=== PATIENT | male | born 1970 | race Caucasian/White ===

== ENCOUNTER 2018-09-16 21:07 | Inpatient (IN) | payer BC ==
[~2018-09-16] VITALS: Ht 170.2 cm; Wt 196.5 kg
--- OUTSIDE RECORDS SUMMARY | 2018-09-16 21:11 | XMS REPORT | CCD ---
Author Author Auto Generated Organization [facility] Address Unknown Phone Unavailable Care Team Providers Care Account Development Associate Name Role Phone Lorri Simeon RP Unavailable DmdamasomariluAlmaRebeca A CP Allergies, Adverse Reactions, Alerts Substance Reaction Status NKDA Active Problem List Condition Effective Dates Status Pain 07/19/2012 Active Pain Active Medications Medication Instructions Start Date End Date Status Adacel 0.5 ml, Route: IM, Drug Form: INJ, 07/18/2012 07/18/2012 Completed kg, ONCE, Start date: 07/18/12 22:01:00, Stop date: 07/18/12 22:01:00 Toradol 30 mg/mL 30 mg, 1 mL, Route: IV, Drug form: 07/20/2012 07/22/2012 Completed injectable solution INJ, Q6H, Dosing Weight 172.727, kg, Start date: 07/20/12 12:00:00, Duration: 4 day, Stop date: 07/22/12 12:00:00 Lovenox 40 mg, 0.4 mL, Route: SUB-Q, Drug 07/19/2012 07/24/2012 Discontinued form: INJ, Q12H, kg, Priority: NOW, Start date: 07/19/12 16:19:00, Stop date: 08/18/12 16:00:00 aspirin 325 mg 325 mg, 1 tab, Route: PO, Drug 07/20/2012 07/24/2012 Discontinued tablet form: TAB, Daily, kg, Start date: 07/20/12 9:00:00, Duration: 30 day, Stop date: 08/18/12 9:00:00 venlafaxine 75 mg, 1 cap, Route: PO, Drug form: 07/21/2012 07/24/2012 Discontinued ERCAP, Daily, kg, Start date: 07/21/12 9:00:00, Duration: 30 day, Stop date: 08/19/12 9:00:00 Sodium Chloride 0.9% 1,000 mL, Rate: 125 ml/hr, Infuse 07/19/2012 07/21/2012 Discontinued IV 1,000 mL over: 8 hr, Route: IV, Total Volume: 1,000, Start date: 07/19/12 9:38:00, Duration: 30 day, Stop date: 08/18/12 9:37:00 MiraLax 17 gm, 1 pkt, Route: PO, Drug form: 07/20/2012 07/24/2012 Discontinued PWDR, BID, kg, Start date: 07/20/12 17:00:00, Duration: 30 day, Stop date: 08/19/12 9:00:00 Colace 100 mg oral 100 mg, 1 cap, Route: PO, Drug 07/20/2012 07/24/2012 Discontinued capsule form: CAP, BID, kg, Start date: 07/20/12 17:00:00, Duration: 30 day, Stop date: 08/19/12 9:00:00 Celebrex 200 mg, 2 cap, Route: PO, Drug 07/20/2012 07/20/2012 Canceled form: CAP, Q12H, kg, Start date: 07/20/12 21:00:00, Duration: 30 day, Stop date: 08/19/12 9:00:00 Ratcliff 10/325 oral 1 tab, Route: PO, Drug Form: TAB, 07/20/2012 07/24/2012 Discontinued tablet kg, Q4H, PRN Pain, Start date: 07/20/12 10:02:00, Duration: 30 day, Stop date: 08/19/12 10:01:00 famotidine 20 mg, 2 mL, Route: IVP, Drug form: 07/20/2012 07/24/2012 Discontinued INJ, Daily, kg, Start date: 07/20/12 9:00:00, Duration: 30 day, Stop date: 08/18/12 9:00:00 [place]cliff 10/325 oral 1 tab, Route: PO, Drug Form: TAB, 07/20/2012 07/24/2012 Discontinued tablet kg, Q4H, Start date: 07/20/12 12:00:00, Stop date: 08/19/12 8:00:00 Sodium Chloride 0.9% 125 mL, Rate: 125 ml/hr, Infuse 07/19/2012 07/19/2012 Completed (Bolus) IV 125 mL over: 1 hr, Route: IV, Dosing Weight 188 kg, Total Volume: 125, Bolus Dose, Priority: STAT, Start date: 07/19/12 8:20:00, Duration: 1 doses or times, Stop date: 07/19/12 9:19:00 Colace 100 mg oral 100 mg, 1 cap, PO, BID, PRN, 20 07/24/2012 Ordered capsule cap, Constipation, Substitution Allowed, CAP Ratcliff 10/325 oral 1 tab, PO, Q4H, PRN, 24 tab, for 07/24/2012 Ordered tablet pain, Substitution Allowed, Maintenance potassium chloride 40 mEq, 2 tab, Route: PO, Drug 07/20/2012 07/20/2012 Completed form: ERTAB, ONCE, kg, Start date: 07/20/12 10:07:00, Stop date: 07/20/12 10:07:00 Augmentin 875 mg 1 tab, Route: PO, Drug Form: TAB, 07/20/2012 07/20/2012 Discontinued oral tablet kg, [id number], Start date: 07/20/12 9:00:00, Stop date: 07/28/12 9:00:00 morphine Sulfate 2 mg, 1 mL, Route: IVP, Drug form: 07/20/2012 07/20/2012 Completed INJ, ONCE, kg, Start date: 07/20/12 0:48:00, Stop date: 07/20/12 0:48:00 Sodium Chloride 0.9% 1,000 mL, Rate: 1,000 ml/hr, Infuse 07/19/2012 07/19/2012 Discontinued (Bolus) IV 1000 mL over: 1 hr, Route: IV, kg, Total Volume: 1,000, Bolus Dose, Priority: STAT, Start date: 07/19/12 8:19:00, Duration: 1 doses or times, Stop date: 07/19/12 9:18:00 Omnipaque 350mg/ml 85 mL, Route: IVP, Drug Form: SOLN, 07/19/2012 07/22/2012 Discontinued kg, ONCALL, STAT, Start date: 07/19/12 4:41:00, Duration: 1 doses or times, Dose=2.2ml/kg, Max [id number] Dose=2.2ml/kg, Max owql=[id number] Dilaudid 1 mg, 0.5 mL, Route: IV, Drug form: 07/19/2012 07/19/2012 Completed INJ, ONCE, kg, Start date: 07/19/12 8:19:00, Stop date: 07/19/12 8:19:00 NS 1,000 mL 1,000 mL, Rate: 1,000 ml/hr, Infuse 07/19/2012 07/19/2012 Completed over: 1 hr, Route: IV, Dosing Weight 188.636 kg, Total Volume: 1,000, Start date: 07/19/12 2:58:00, Duration: 1 doses or times, Stop date: 07/19/12 3:57:00, Bolus Dose Bolus Dose morphine Sulfate 2 mg, 1 mL, Route: IVP, Drug form: 07/19/2012 07/24/2012 Discontinued INJ, Q2H, kg, PRN Pain Score 7-10, Start date: 07/19/12 8:24:00, Duration: 30 day, Stop date: 08/18/12 8:23:00 docusate 100 mg, 1 cap, Route: PO, Drug 07/19/2012 07/23/2012 Discontinued form: CAP, BID, kg, PRN Constipation, Start date: 07/19/12 8:24:00, Duration: 30 day, Stop date: 08/18/12 8:23:00 Immunizations Vaccine Date Status diphtheria/pertussis, acel/tetanus adult1 07/18/2012 Auth (Verified) 1Result Comment: other RN threw bottle away Vital Signs Most recent to oldest [Reference Range]: 1 2 3 Height 180.34 cm (07/19/2012 14:26:00) 180.34 cm (07/19/2012 02:35:00) Temperature Oral [96.4-99.1 DegF] 98.4 DegF (07/24/2012 17:56:00) 98.2 DegF (07/24/2012 07:28:00) 98.6 DegF (07/24/2012 04:00:00) Systolic Blood Pressure [90-140 mmHg] 157 mmHg *HI* (07/24/2012 17:56:00) 134 mmHg (07/24/2012 07:28:00) 137 mmHg (07/24/2012 04:00:00) Diastolic Blood Pressure [60-90 mmHg] 84 mmHg (07/24/2012 17:56:00) 67 mmHg (07/24/2012 07:28:00) 82 mmHg (07/24/2012 04:00:00) Respiratory Rate [14-20 BRMIN] 20 BRMIN (07/24/2012 17:56:00) 20 BRMIN (07/24/2012 07:28:00) 20 BRMIN (07/24/2012 04:00:00) Peripheral Pulse Rate [60-100 bpm] 62 bpm (07/24/2012 17:56:00) 91 bpm (07/24/2012 07:28:00) 101 bpm *HI* (07/24/2012 04:00:00) Weight 172.727 kg (07/19/2012 14:26:00) 188.636 kg (07/19/2012 02:35:00) Results BEDSIDE GLUCOSE TESTING Most recent to oldest [Reference Range]: 1 2 3 Gluc POC Lif[place]n [70-99 mg/dL] 114 mg/dL 1 *HI* (07/20/2012 03:48:00) 113 mg/dL 2 *HI* (07/19/2012 23:29:00) 113 mg/dL 3 *HI* (07/19/2012 20:30:00) Comment1 Notify RN/MD *NA* (07/19/2012 14:15:00) 1Interpretive Data: Upper Reportable Limit: 200 mg/dL. 2Interpretive Data: Upper Reportable Limit: 200 mg/dL. 3Interpretive Data: Upper Reportable Limit: 200 mg/dL. URINALYSIS Most recent to oldest [Reference Range]: 1 2 3 UA Turbidity [Clear] Clear (07/19/2012 14:44:00) UA Color [Yellow] Yellow *NA* (07/19/2012 14:44:00) UA pH [5.0-8.0] 5.5 (07/19/2012 14:44:00) UA Spec Grav [<=1.030] 1.029 (07/19/2012 14:44:00) UA Glucose [Negative mg/dL] Negative mg/dL *NA* (07/19/2012 14:44:00) UA Blood [Negative] Moderate *ABN* (07/19/2012 14:44:00) UA Ketones [Negative mg/dL] Negative mg/dL *NA* (07/19/2012 14:44:00) UA Protein [Negative mg/dL] 20 mg/dL *ABN* (07/19/2012 14:44:00) UA Urobilinogen [0.1-1.0 mg/dL] <=1.0 mg/dL *NA* (07/19/2012 14:44:00) UA Bili [Negative] Negative *NA* (07/19/2012 14:44:00) UA Leuk Est [Negative] Negative (07/19/2012 14:44:00) UA Nitrite [Negative] Negative (07/19/2012 14:44:00) UA WBC [0-5 /HPF] 2 /HPF *NA* (07/19/2012 14:44:00) UA RBC [0-2 /HPF] 45 /HPF *NA* (07/19/2012 14:44:00) UA Bacteria [None Seen /HPF] Occasional /HPF *NA* (07/19/2012 14:44:00) UA Sq Epi [Few /LPF] Occasional /LPF *NA* (07/19/2012 14:44:00) UA Mucus [None Seen /LPF] Few /LPF *NA* (07/19/2012 14:44:00) CHEMISTRY Most recent to oldest [Reference Range]: 1 2 3 Sodium Lvl [135-145 mEq/L] 142 mEq/L (07/22/2012 04:30:00) 144 mEq/L (07/20/2012 01:52:00) 142 mEq/L (07/19/2012 18:50:00) Potassium Lvl [3.5-5.1 mEq/L] 4.0 mEq/L (07/22/2012 04:30:00) 3.7 mEq/L (07/20/2012 01:52:00) 3.6 mEq/L (07/19/2012 18:50:00) Chloride Lvl [95-109 mEq/L] 106 mEq/L (07/22/2012 04:30:00) 108 mEq/L (07/20/2012 01:52:00) 106 mEq/L (07/19/2012 18:50:00) CO2 [24-32 mEq/L] 26 mEq/L (07/22/2012 04:30:00) 27 mEq/L (07/20/2012 01:52:00) 26 mEq/L (07/19/2012 18:50:00) AGAP [10.0-20.0 mEq/L] 14.0 mEq/L (07/22/2012 04:30:00) 12.7 mEq/L (07/20/2012 01:52:00) 13.6 mEq/L (07/19/2012 18:50:00) Creatinine Lvl [0.5-1.4 mg/dL] 0.7 mg/dL (07/22/2012 04:30:00) 0.9 mg/dL (07/20/2012:52:00) 0.9 mg/dL (07/19/2012 18:50:00) BUN [7-22 mg/dL] 11 mg/dL (07/22/2012 04:30:00) 10 mg/dL (07/20/2012 01:52:00) 9 mg/dL (07/19/2012 18:50:00) Glucose Lvl [70-99 mg/dL] 106 mg/dL 4 *HI* (07/22/2012 04:30:00) 121 mg/dL 5 *HI* (07/20/2012 01:52:00) 115 mg/dL 6 *HI* (07/19/2012 18:50:00) Calcium Lvl [8.5-10.5 mg/dL] 8.1 mg/dL *LOW* (07/22/2012 04:30:00) 7.9 mg/dL *LOW* (07/20/2012 01:52:00) 8.2 mg/dL *LOW* (07/19/2012 18:50:00) Phosphorus [2.5-4.5 mg/dL] 3.2 mg/dL (07/22/2012 04:30:00) 2.3 mg/dL *LOW* (07/19/2012 18:50:00) Magnesium Lvl [1.8-2.4 mg/dL] 2.1 mg/dL (07/22/2012 04:30:00) 2.0 mg/dL (07/19/2012 18:50:00) pH [place] [7.28-7.42] 7.33 (07/19/2012 05:45:00) pCO2 [place] [38-52 mmHg] 50 mmHg (07/19/2012 05:45:00) pO2 [place] [20-49 mmHg] 33 mmHg (07/19/2012 05:45:00) HCO3 [place] [22.0-26.0 mMol/L] 26.4 mMol/L *HI* (07/19/2012 05:45:00) BE [place] [-2-2 mMol/L] 0 mMol/L (07/19/2012 05:45:00) O2 Sat [place] [40.0-70.0 %] 58.0 % (07/19/2012 05:45:00) Temp [place] 37.0 DegC *NA* (07/19/2012 05:45:00) 4Interpretive Data: Adult reference range values reflect the clinical guidelines of the [place] [employer]. 5Interpretive Data: Adult reference range values reflect the clinical guidelines of the [place] [employer]. 6Interpretive Data: Adult reference range values reflect the clinical guidelines of the [place] [employer]. HEMATOLOGY Most recent to oldest [Reference Range]: 1 2 3 WBC [3.7-10.4 K/CMM] 6.0 K/CMM (07/22/2012 04:30:00) 10.4 K/CMM (07/20/2012 01:52:00) 10.5 K/CMM *HI* (07/19/2012 18:50:00) RBC [4.70-6.10 M/CMM] 4.36 M/CMM *LOW* (07/22/2012 04:30:00) 4.31 M/CMM *LOW* (07/20/2012 01:52:00) 4.25 M/CMM *LOW* (07/19/2012 18:50:00) Hgb [14.0-18.0 g/dL] 13.3 g/dL *LOW* (07/22/2012 04:30:00) 12.9 g/dL *LOW* (07/20/2012 01:52:00) 12.8 g/dL *LOW* (07/19/2012 18:50:00) Hct [42.0-54.0 %] 39.2 % *LOW* (07/22/2012 04:30:00) 38.8 % *LOW* (07/20/2012 01:52:00) 38.1 % *LOW* (07/19/2012 18:50:00) MCV [80.0-94.0 fL] 90.0 fL (07/22/2012 04:30:00) 90.1 fL (07/20/2012 01:52:00) 89.6 fL (07/19/2012 18:50:00) MCH [27.0-31.0 pg] 30.5 pg (07/22/2012 04:30:00) 29.9 pg (07/20/2012 01:52:00) 30.2 pg (07/19/2012 18:50:00) MCHC [32.0-36.0 g/dL] 33.9 g/dL (07/22/2012 04:30:00) 33.2 g/dL (07/20/2012 01:52:00) 33.7 g/dL (07/19/2012 18:50:00) RDW [11.5-14.5 %] 15.3 % *HI* (07/22/2012 04:30:00) 15.6 % *HI* (07/20/2012 01:52:00) 15.1 % *HI* (07/19/2012 18:50:00) Platelet [133-450 K/CMM] 214 K/CMM (07/22/2012 04:30:00) 203 K/CMM (07/20/2012 01:52:00) 194 K/CMM (07/19/2012 18:50:00) MPV [7.4-10.4 fL] 8.4 fL (07/22/2012 04:30:00) 8.7 fL (07/20/2012 01:52:00) 8.9 fL (07/19/2012 18:50:00) Segs [45.0-75.0 %] 76.0 % *HI* (07/22/2012 04:30:00) 82.5 % *HI* (07/20/2012 01:52:00) 83.4 % *HI* (07/19/2012 18:50:00) Lymphocytes [20.0-40.0 %] 13.3 % *LOW* (07/22/2012 04:30:00) 9.5 % *LOW* (07/20/2012 01:52:00) 9.3 % *LOW* (07/19/2012 18:50:00) Monocytes [2.0-12.0 %] 7.8 % (07/22/2012 04:30:00) 7.6 % (07/20/2012 01:52:00) 7.1 % (07/19/2012 18:50:00) Eosinophils [0.0-4.0 %] 2.6 % (07/22/2012 04:30:00) 0.3 % (07/20/2012 01:52:00) 0.1 % (07/19/2012 18:50:00) Basophils [0.0-1.0 %] 0.3 % (07/22/2012 04:30:00) 0.1 % (07/20/2012 01:52:00) 0.1 % (07/19/2012 18:50:00) Segs-Bands # [1.5-8.1 K/CMM] 4.5 K/CMM (07/22/2012 04:30:00) 8.6 K/CMM *HI* (07/20/2012 01:52:00) 8.8 K/CMM *HI* (07/19/2012 18:50:00) Lymphocytes # [1.0-5.5 K/CMM] 0.8 K/CMM *LOW* (07/22/2012 04:30:00) 1.0 K/CMM (07/20/2012 01:52:00) 1.0 K/CMM (07/19/2012 18:50:00) Monocytes # [0.0-0.8 K/CMM] 0.5 K/CMM (07/22/2012 04:30:00) 0.8 K/CMM (07/20/2012 01:52:00) 0.8 K/CMM (07/19/2012 18:50:00) Eosinophils # [0.0-0.5 K/CMM] 0.2 K/CMM (07/22/2012 04:30:00) 0.0 K/CMM (07/20/2012 01:52:00) 0.0 K/CMM (07/19/2012 18:50:00) Basophils # [0.0-0.2 K/CMM] 0.0 K/CMM (07/22/2012 04:30:00) 0.0 K/CMM (07/20/2012 01:52:00) 0.0 K/CMM (07/19/2012 18:50:00) Rapid TEG Sample Type Citrated Whole Blood *NA* (07/19/2012 05:45:00) ACT (TEG) [86-118 seconds] 97 seconds (07/19/2012 05:45:00) Split Point 0.4 minutes *NA* (07/19/2012 05:45:00) R-time [0.4-0.7 minutes] 0.5 minutes (07/19/2012 05:45:00) K-time [0.6-2.3 minutes] 1.2 minutes (07/19/2012 05:45:00) Angle [64-80 degrees] 76 degrees (07/19/2012 05:45:00) Max Amp [52-71 mm] 66 mm (07/19/2012 05:45:00) G-value [5.0-11.6 K d/sc] 9.7 K d/sc (07/19/2012 05:45:00) Estimated % Lysis [0.0-7.5 %] 1.4 % (07/19/2012 05:45:00) IMMUNOLOGY Most recent to oldest [Reference Range]: 1 2 3 CDC-HIV 1/2 Ab [Negative] Negative *NA* (07/19/2012 00:51:00)
--- OUTSIDE RECORDS SUMMARY | 2018-09-16 21:11 | XMS REPORT | CCD ---
Author Author Auto Generated Organization [facility] Address Unknown Phone Unavailable Care Team Providers Care Drug Abuse Resistance Education Officer Name Role Phone Lorri Simeon CP Unavailable Allergies, Adverse Reactions, Alerts Substance Reaction Status NKDA Active Problem List Condition Effective Dates Status Pain 07/19/2012 Active Pain Active Medications Medication Instructions Start Date End Date Status Adacel 0.5 ml, Route: IM, Drug Form: INJ, 07/18/2012 07/18/2012 Completed kg, ONCE, Start date: 07/18/12 22:01:00, Stop date: 07/18/12 22:01:00 Zofran 4 mg, Route: IVP, Drug form: INJ, 07/18/2012 07/18/2012 Completed ONCE, kg, Priority: STAT, Start date: 07/18/12 22:01:00, Stop date: 07/18/12 22:01:00 morphine Sulfate 4 mg, Route: IVP, ONCE, kg, Start 07/18/2012 07/18/2012 Completed date: 07/18/12 22:01:00, Stop date: 07/18/12 22:01:00 LR IV 1000 mL 1,000 mL, Rate: 1,000 ml/hr, Infuse 07/18/2012 07/19/2012 Discontinued over: 1 hr, Route: IV, Total Volume: 1,000, Start date: 07/18/12 22:01:00, Duration: 30 day, Stop date: 08/17/12 22:00:00 Dilaudid 1 mg, Route: IV, ONCE, Dosing 07/19/2012 07/19/2012 Completed Weight 193.182, kg, Start date: 07/19/12 0:42:00, Stop date: 07/19/12 0:42:00 Saline Flush 0.9% 5 ml, Route: IVP, kg, PRN, PRN Line 07/18/2012 07/19/2012 Discontinued Flush, Start date: 07/18/12 21:57:00, Duration: 30 day, Stop date: 08/17/12 21:56:00 Lactated Ringers 1,000 mL, Rate: 1,000 ml/hr, Infuse 07/18/2012 07/18/2012 Completed (Bolus) IV 1,000 mL over: 1 hr, Route: IV, Total Volume: 1,000, Bolus Dose, Priority: STAT, Start date: 07/18/12 21:57:00, Duration: 1 doses or times, Stop date: 07/18/12 22:56:00 Effexor Substitution Allowed 07/19/2012 Ordered morphine Sulfate 4 mg, Route: IVP, ONCE, Dosing 07/18/2012 07/18/2012 Completed Weight 193.182, kg, Priority: STAT, Start date: 07/18/12 22:54:00, Stop date: 07/18/12 22:54:00 Dilaudid 1 mg, Route: IV, ONCE, Dosing 07/18/2012 07/18/2012 Completed Weight 193.182, kg, Start date: 07/18/12 23:35:00, Stop date: 07/18/12 23:35:00 Immunizations Vaccine Date Status diphtheria/pertussis, acel/tetanus adult1 07/18/2012 Auth (Verified) 1Result Comment: other RN threw bottle away Vital Signs Most recent to oldest [Reference Range]: 1 Height 180.34 cm (07/18/2012 21:55:00) Weight 193.182 kg (07/18/2012 21:55:00) Results URINALYSIS Most recent to oldest [Reference Range]: 1 UA Turbidity [Clear] Clear (07/19/2012 00:25:00) UA Color [Yellow] Yellow *NA* (07/19/2012 00:25:00) UA pH [5.0-8.0] 5.0 (07/19/2012 00:25:00) UA Spec Grav [<=1.030] 1.020 (07/19/2012 00:25:00) UA Glucose [Negative mg/dL] Negative mg/dL *NA* (07/19/2012 00:25:00) UA Blood [Negative] Moderate *ABN* (07/19/2012 00:25:00) UA Ketones [Negative mg/dL] Negative mg/dL *NA* (07/19/2012 00:25:00) UA Protein [Negative mg/dL] Negative mg/dL (07/19/2012 00:25:00) UA Urobilinogen [0.1-1.0 mg/dL] <=1.0 mg/dL *NA* (07/19/2012 00:25:00) UA Bili [Negative] Negative *NA* (07/19/2012 00:25:00) UA Leuk Est [Negative] Negative (07/19/2012 00:25:00) UA Nitrite [Negative] Negative (07/19/2012 00:25:00) UA WBC [0-5 /HPF] 2 /HPF (07/19/2012 00:25:00) UA RBC [0-2 /HPF] 7 /HPF *HI* (07/19/2012 00:25:00) UA Bacteria [None Seen /HPF] Occasional /HPF *NA* (07/19/2012 00:25:00) UA Sq Epi [Few /LPF] Occasional /LPF *NA* (07/19/2012 00:25:00) UA Hyal Cast [0-2 /LPF] 11 /LPF *HI* (07/19/2012 00:25:00) UA Mucus [None Seen /LPF] Few /LPF *NA* (07/19/2012 00:25:00) BLOOD BANK RESULTS Most recent to oldest [Reference Range]: 1 ABO/Rh A POS *Unknown* (07/18/2012 21:59:00) Antibody Scrn Negative (07/18/2012 21:59:00) CHEMISTRY Most recent to oldest [Reference Range]: 1 Sodium Lvl [135-145 mEq/L] 141 mEq/L (07/18/2012 21:59:00) Potassium Lvl [3.5-5.1 mEq/L] 3.1 mEq/L *LOW* (07/18/2012 21:59:00) Chloride Lvl [95-109 mEq/L] 104 mEq/L (07/18/2012 21:59:00) CO2 [24-32 mEq/L] 26 mEq/L (07/18/2012 21:59:00) AGAP [10.0-20.0 mEq/L] 14.1 mEq/L (07/18/2012 21:59:00) Creatinine Lvl [0.5-1.4 mg/dL] 1.2 mg/dL (07/18/2012 21:59:00) BUN [7-22 mg/dL] 12 mg/dL (07/18/2012 21:59:00) B/C Ratio [6-25] 10 (07/18/2012 21:59:00) Glucose Lvl [70-99 mg/dL] 121 mg/dL 1 *HI* (07/18/2012 21:59:00) Total Protein [6.4-8.4 g/dL] 6.7 g/dL (07/18/2012 21:59:00) Albumin Lvl [3.5-5.0 g/dL] 3.5 g/dL (07/18/2012 21:59:00) Globulin [2.0-4.0 g/dL] 3.2 g/dL (07/18/2012 21:59:00) A/G Ratio [0.7-1.6] 1.1 (07/18/2012 21:59:00) Calcium Lvl [8.5-10.5 mg/dL] 8.1 mg/dL *LOW* (07/18/2012 21:59:00) ALT [0-65 unit/L] 44 unit/L (07/18/2012 21:59:00) AST [0-37 unit/L] 43 unit/L *HI* (07/18/2012 21:59:00) Alk Phos [39-136 unit/L] 47 unit/L (07/18/2012 21:59:00) Bili Total [0.2-1.3 mg/dL] 0.3 mg/dL (07/18/2012 21:59:00) Amylase Lvl [25-115 unit/L] 34 unit/L (07/18/2012 21:59:00) U Amph Scr [Negative] Negative *NA* (07/19/2012 00:25:00) U Lurdes Scr [Negative] Negative *NA* (07/19/2012 00:25:00) U Benzodia Scr [Negative] Negative *NA* (07/19/2012 00:25:00) U Cocaine Scr [Negative] Negative *NA* (07/19/2012 00:25:00) U Opiate Scr [Negative] Positive *ABN* (07/19/2012 00:25:00) U Phencyc Scr [Negative] Negative *NA* (07/19/2012 00:25:00) U Cannab Scr [Negative] Negative *NA* (07/19/2012 00:25:00) UDS Note See Note 2 (07/19/2012 00:25:00) Etoh (%) .110 % 3 *NA* (07/18/2012 21:59:00) Ethanol Lvl 110 mg/dL 4 *NA* (07/18/2012 21:59:00) 1Interpretive Data: Adult reference range values reflect the clinical guidelines of the [place] [employer]. 2Interpretive Data: Drugs reported as positive have not been confirmed by a second method and should be used for medical purposes only. To order confirmation, contact laboratory. note: Below are cut-off concentrations for all urine drugs of abuse performed in the laboratory. Some drugs listed in the table may not be included in this panel. Description Cut-off concentration Amphetamine 1000 ng/mL Barbiturates 200 ng/mL Benzodiazepines 300 ng/mL Cocaine metabolites 300 ng/mL Opiates 300 ng/mL Phencyclidine 25 ng/mL Propoxyphene 300 ng/mL Marijuana metabolites 50 ng/mL Methadone 300 ng/mL Urine alcohol 20 mg/dL 3Interpretive Data: Negative Range: <0.003% Toxic Range: >0.25% 4Interpretive Data: Negative Range: <3 mg/dL Toxic Range: >250 mg/dL HEMATOLOGY Most recent to oldest [Reference Range]: 1 WBC [3.7-10.4 K/CMM] 9.2 K/CMM (07/18/2012 21:59:00) RBC [4.70-6.10 M/CMM] 4.35 M/CMM *LOW* (07/18/2012 21:59:00) Hgb [14.0-18.0 g/dL] 13.2 g/dL *LOW* (07/18/2012 21:59:00) Hct [42.0-54.0 %] 38.7 % *LOW* (07/18/2012:59:00) MCV [80.0-94.0 fL] 88.8 fL (07/18/2012 21:59:00) MCH [27.0-31.0 pg] 30.3 pg (07/18/2012:59:00) MCHC [32.0-36.0 g/dL] 34.1 g/dL (07/18/2012 21:59:00) RDW [11.5-14.5 %] 15.2 % *HI* (07/18/2012:59:00) Platelet [133-450 K/CMM] 282 K/CMM (07/18/2012 21:59:00) MPV [7.4-10.4 fL] 8.1 fL (07/18/2012:59:00) Segs [45.0-75.0 %] 59.8 % (07/18/2012 21:59:00) Lymphocytes [20.0-40.0 %] 28.8 % (07/18/2012 21:59:00) Monocytes [2.0-12.0 %] 9.4 % (07/18/2012:59:00) Eosinophils [0.0-4.0 %] 1.7 % (07/18/2012 21:59:00) Basophils [0.0-1.0 %] 0.3 % (07/18/2012 21:59:00) Segs-Bands # [1.5-8.1 K/CMM] 5.5 K/CMM (07/18/2012 21:59:00) Lymphocytes # [1.0-5.5 K/CMM] 2.6 K/CMM (07/18/2012 21:59:00) Monocytes # [0.0-0.8 K/CMM] 0.9 K/CMM *HI* (07/18/2012 21:59:00) Eosinophils # [0.0-0.5 K/CMM] 0.2 K/CMM (07/18/2012 21:59:00) Basophils # [0.0-0.2 K/CMM] 0.0 K/CMM (07/18/2012 21:59:00) PT [12.0-14.7 seconds] 12.4 seconds (07/18/2012 21:59:00) INR [0.85-1.17] 0.90 5 (07/18/2012 21:59:00) PTT [22.9-35.8 seconds] 26.8 seconds 6 (07/18/2012 21:59:00) 5Interpretive Data: RECOMMENDED RANGES FOR PROTIME INR: 2.0-3.0 for most medical and surgical thromboembolic states. 2.5-3.5 for artificial heart valves and recurrent embolism. INR SHOULD BE USED ONLY FOR PATIENTS ON STABLE ANTICOAGULANT THERAPY. 6Interpretive Data: Heparin Therapeutic Range: 57 - 92 Seconds
--- OUTSIDE RECORDS SUMMARY | 2018-09-16 21:11 | XMS REPORT | Continuity of Care Document ---
Author Author Chavo sandhu [facility] Interface Address Unknown Phone Unavailable Problems Problem Status Onset Date Classification Date Reported Comments Source Pain Active 07/19/2012 Problem 07/26/2012 [facility] MULTI FACIAL FX/THORACIC SPINE FX Active 07/18/2012 [facility] MULTIPLE FACIAL FX THORACIC SPINE FX'S S/P MCA Active 07/18/2012 [facility] FX FACIAL BONE NEC-CLOSE Active [facility] Medications Medication Details Route Status Patient Instructions Ordering Provider Order Date Source Colace 100 mg oral capsule 100 mg, 1 cap, PO, BID, PRN, 20 cap, Constipation, Substitution Allowed, CAP PO Active [place] 07/24/2012 [facility] [place] 10/325 oral tablet 1 tab, PO, Q4H, PRN, 24 tab, for pain, Substitution Allowed, Maintenance PO Active Rubin 07/24/2012 [facility] venlafaxine 75 mg, 1 cap, Route: PO, Drug form: ERCAP, Daily, kg, Start date: 07/21/12 9:00:00, Duration: 30 day, Stop date: 08/19/12 9:00:00 PO No Longer Active [place] 07/21/2012 [facility] Celebrex 200 mg, 2 cap, Route: PO, Drug form: CAP, Q12H, kg, Start date: 07/20/12 21:00:00, Duration: 30 day, Stop date: 08/19/12 9:00:00 PO No Longer Active [place] 07/21/2012 [facility] MiraLax 17 gm, 1 pkt, Route: PO, Drug form: PWDR, BID, kg, Start date: 07/20/12 17:00:00, Duration: 30 day, Stop date: 08/19/12 9:00:00 PO No Longer Active [place] 07/20/2012 [facility] Colace 100 mg oral capsule 100 mg, 1 cap, Route: PO, Drug form: CAP, BID, kg, Start date: 07/20/12 17:00:00, Duration: 30 day, Stop date: 08/19/12 9:00:00 PO No Longer Active [place] 07/20/2012 [facility] Toradol 30 mg/mL injectable solution 30 mg, 1 mL, Route: IV, Drug form: INJ, Q6H, Dosing Weight 172.727, kg, Start date: 07/20/12 12:00:00, Duration: 4 day, Stop date: 07/22/12 12:00:00 IV No Longer Active [place] 07/20/2012 [facility] [place] 10/325 oral tablet 1 tab, Route: PO, Drug Form: TAB, kg, Q4H, Start date: 07/20/12 12:00:00, Stop date: 08/19/12 8:00:00 PO No Longer Active [place] 07/20/2012 [facility] potassium chloride 40 mEq, 2 tab, Route: PO, Drug form: ERTAB, ONCE, kg, Start date: 07/20/12 10:07:00, Stop date: 07/20/12 10:07:00 PO No Longer Active [place] 07/20/2012 [facility] [place] 10/325 oral tablet 1 tab, Route: PO, Drug Form: TAB, kg, Q4H, PRN Pain, Start date: 07/20/12 10:02:00, Duration: 30 day, Stop date: 08/19/12 10:01:00 PO No Longer Active [place] 07/20/2012 [facility] aspirin 325 mg tablet 325 mg, 1 tab, Route: PO, Drug form: TAB, Daily, kg, Start date: 07/20/12 9:00:00, Duration: 30 day, Stop date: 08/18/12 9:00:00 PO No Longer Active [facility] 07/20/2012 [facility] famotidine 20 mg, 2 mL, Route: IVP, Drug form: INJ, Daily, kg, Start date: 07/20/12 9:00:00, Duration: 30 day, Stop date: 08/18/12 9:00:00 IVP No Longer Active [place] 07/20/2012 [facility] Augmentin 875 mg oral tablet 1 tab, Route: PO, Drug Form: TAB, kg, [id number], Start date: 07/20/12 9:00:00, Stop date: 07/28/12 9:00:00 PO No Longer Active [place] 07/20/2012 [facility] morphine Sulfate 2 mg, 1 mL, Route: IVP, Drug form: INJ, ONCE, kg, Start date: 07/20/12 0:48:00, Stop date: 07/20/12 0:48:00 IVP No Longer Active [place] 07/20/2012 [facility] Lovenox 40 mg, 0.4 mL, Route: SUB-Q, Drug form: INJ, Q12H, kg, Priority: NOW, Start date: 07/19/12 16:19:00, Stop date: 08/18/12 16:00:00 SUB-Q No Longer Active [place] 07/19/2012 [facility] Sodium Chloride 0.9% IV 1,000 mL 1,000 mL, Rate: 125 ml/hr, Infuse over: 8 hr, Route: IV, Total Volume: 1,000, Start date: 07/19/12 9:38:00, Duration: 30 day, Stop date: 08/18/12 9:37:00 IV No Longer Active [place] 07/19/2012 [facility] morphine Sulfate 2 mg, 1 mL, Route: IVP, Drug form: INJ, Q2H, kg, PRN Pain Score 7-10, Start date: 07/19/12 8:24:00, Duration: 30 day, Stop date: 08/18/12 8:23:00 IVP No Longer Active [place] 07/19/2012 [facility] docusate 100 mg, 1 cap, Route: PO, Drug form: CAP, BID, kg, PRN Constipation, Start date: 07/19/12 8:24:00, Duration: 30 day, Stop date: 08/18/12 8:23:00 PO No Longer Active [place] 07/19/2012 [facility] Sodium Chloride 0.9% (Bolus) IV 125 mL 125 mL, Rate: 125 ml/hr, Infuse over: 1 hr, Route: IV, Dosing Weight 188 kg, Total Volume: 125, Bolus Dose, Priority: STAT, Start date: 07/19/12 8:20:00, Duration: 1 doses or times, Stop date: 07/19/12 9:19:00 IV No Longer Active [place] 07/19/2012 [facility] Sodium Chloride 0.9% (Bolus) IV 1000 mL 1,000 mL, Rate: 1,000 ml/hr, Infuse over: 1 hr, Route: IV, kg, Total Volume: 1,000, Bolus Dose, Priority: STAT, Start date: 07/19/12 8:19:00, Duration: 1 doses or times, Stop date: 07/19/12 9:18:00 IV No Longer Active [place] 07/19/2012 [facility] Dilaudid 1 mg, 0.5 mL, Route: IV, Drug form: INJ, ONCE, kg, Start date: 07/19/12 8:19:00, Stop date: 07/19/12 8:19:00 IV No Longer Active [place] 07/19/2012 [facility] Omnipaque 350mg/ml 85 mL, Route: IVP, Drug Form: SOLN, kg, ONCALL, STAT, Start date: 07/19/12 4:41:00, Duration: 1 doses or times, Dose=2.2ml/kg, Max fhjq=[id number]=8.2ml/kg, Max [id number]=[id number] IVP No Longer Active [place] 07/19/2012 [facility] NS 1,000 mL 1,000 mL, Rate: 1,000 ml/hr, Infuse over: 1 hr, Route: IV, Dosing Weight 188.636 kg, Total Volume: 1,000, Start date: 07/19/12 2:58:00, Duration: 1 doses or times, Stop date: 07/19/12 3:57:00, Bolus DoseBolus Dose IV No Longer Active [place] 07/19/2012 [facility] Dilaudid 1 mg, Route: IV, ONCE, Dosing Weight 193.182, kg, Start date: 07/19/12 0:42:00, Stop date: 07/19/12 0:42:00 IV No Longer Active [place] 07/19/2012 [facility] Effexor Substitution Allowed Active 07/19/2012 [facility] Dilaudid 1 mg, Route: IV, ONCE, Dosing Weight 193.182, kg, Start date: 07/18/12 23:35:00, Stop date: 07/18/12 23:35:00 IV No Longer Active [facility] 07/19/2012 [facility] morphine Sulfate 4 mg, Route: IVP, ONCE, Dosing Weight 193.182, kg, Priority: STAT, Start date: 07/18/12 22:54:00, Stop date: 07/18/12 22:54:00 IVP No Longer Active [facility] 07/19/2012 [facility] Zofran 4 mg, Route: IVP, Drug form: INJ, ONCE, kg, Priority: STAT, Start date: 07/18/12 22:01:00, Stop date: 07/18/12 22:01:00 IVP No Longer Active [place] 07/19/2012 [facility] morphine Sulfate 4 mg, Route: IVP, ONCE, kg, Start date: 07/18/12 22:01:00, Stop date: 07/18/12 22:01:00 IVP No Longer Active [place] 07/19/2012 [facility] LR IV 1000 mL 1,000 mL, Rate: 1,000 ml/hr, Infuse over: 1 hr, Route: IV, Total Volume: 1,000, Start date: 07/18/12 22:01:00, Duration: 30 day, Stop date: 08/17/12 22:00:00 IV No Longer Active [place] 07/19/2012 [facility] Adacel 0.5 ml, Route: IM, Drug Form: INJ, kg, ONCE, Start date: 07/18/12 22:01:00, Stop date: 07/18/12 22:01:00 IM No Longer Active [place] 07/19/2012 [facility] Saline Flush 0.9% 5 ml, Route: IVP, kg, PRN, PRN Line Flush, Start date: 07/18/12 21:57:00, Duration: 30 day, Stop date: 08/17/12 21:56:00 IVP No Longer Active [place] 07/19/2012 [facility] Lactated Ringers (Bolus) IV 1,000 mL 1,000 mL, Rate: 1,000 ml/hr, Infuse over: 1 hr, Route: IV, Total Volume: 1,000, Bolus Dose, Priority: STAT, Start date: 07/18/12 21:57:00, Duration: 1 doses or times, Stop date: 07/18/12 22:56:00 IV No Longer Active [place] 07/19/2012 [facility] Allergies, Adverse Reactions, Alerts Substance Category Reaction Severity Reaction type Status Date Reported Comments Source Immunizations Immunization Date Given Site Status Last Updated Comments Source diphtheria/pertussis, acel/tetanus adult<sup>1</sup> 07/19/2012 completed Eris Asher Comment: other RN threw bottle away [facility] Results Order Name Results Value Reference Range Date Interpretation Comments Source CHEMISTRY Magnesium Lvl 2.1 mg/dL 1.8 - 2.4 07/22/2012 Normal [facility] CHEMISTRY Calcium Lvl 8.1 mg/dL 8.5 - 10.5 07/22/2012 LOW [facility] CHEMISTRY CO2 26 meq/L 24 - 32 07/22/2012 Normal [facility] CHEMISTRY Chloride Lvl 106 meq/L 95 - 109 07/22/2012 Normal [facility] CHEMISTRY Potassium Lvl 4.0 meq/L 3.5 - 5.1 07/22/2012 Normal [facility] CHEMISTRY Sodium Lvl 142 meq/L 135 - 145 07/22/2012 Normal [facility] CHEMISTRY Creatinine Lvl 0.7 mg/dL 0.5 - 1.4 07/22/2012 Normal [facility] CHEMISTRY Glucose Lvl 106 mg/dL 70 - 99 07/22/2012 [place] 4Interpretive Data: Adult reference range values reflect the clinical guidelines of the [place] [employer]. [facility] CHEMISTRY BUN 11 mg/dL 7 - 22 07/22/2012 Normal [facility] CHEMISTRY AGAP 14.0 meq/L 10.0 - 20.0 07/22/2012 Normal [facility] CHEMISTRY Phosphorus 3.2 mg/dL 2.5 - 4.5 07/22/2012 Normal [facility] HEMATOLOGY Basophils # 0.0 K/CMM 0.0 - 0.2 07/22/2012 Normal [facility] HEMATOLOGY Eosinophils # 0.2 K/CMM 0.0 - 0.5 07/22/2012 Normal [facility] HEMATOLOGY Monocytes # 0.5 K/CMM 0.0 - 0.8 07/22/2012 Normal [facility] HEMATOLOGY Lymphocytes # 0.8 K/CMM 1.0 - 5.5 07/22/2012 [facility] HEMATOLOGY Basophils 0.3 % 0.0 - 1.0 07/22/2012 [facility] HEMATOLOGY Eosinophils 2.6 % 0.0 - 4.0 07/22/2012 [facility] HEMATOLOGY Segs-Bands # 4.5 K/CMM 1.5 - 8.1 07/22/2012 [facility] HEMATOLOGY Segs 76.0 % 45.0 - 75.0 07/22/2012 [facility] HEMATOLOGY Monocytes 7.8 % 2.0 - 12.0 07/22/2012 [facility] HEMATOLOGY Lymphocytes 13.3 % 20.0 - 40.0 07/22/2012 [facility] HEMATOLOGY MPV 8.4 fL 7.4 - 10.4 07/22/2012 [facility] HEMATOLOGY Platelet 214 K/CMM 133 - 450 07/22/2012 [facility] HEMATOLOGY MCHC 33.9 g/dL 32.0 - 36.0 07/22/2012 [facility] HEMATOLOGY MCH 30.5 pg 27.0 - 31.0 07/22/2012 [facility] HEMATOLOGY RDW 15.3 % 11.5 - 14.5 07/22/2012 [facility] HEMATOLOGY MCV 90.0 fL 80.0 - 94.0 07/22/2012 [facility] HEMATOLOGY Hct 39.2 % 42.0 - 54.0 07/22/2012 [facility] HEMATOLOGY RBC 4.36 M/CMM 4.70 - 6.10 07/22/2012 [facility] HEMATOLOGY Hgb 13.3 g/dL 14.0 - 18.0 07/22/2012 [facility] HEMATOLOGY WBC 6.0 K/CMM 3.7 - 10.4 07/22/2012 [facility] BEDSIDE GLUCOSE TESTING Gluc POC Lifscn 114 mg/dL 70 - 99 07/20/2012 [place] 1Interpretive Data: Upper Reportable Limit: 200 mg/dL. [facility] CHEMISTRY AGAP 12.7 meq/L 10.0 - 20.0 07/20/2012 [facility] CHEMISTRY CO2 27 meq/L 24 - 32 07/20/2012 [facility] CHEMISTRY Calcium Lvl 7.9 mg/dL 8.5 - 10.5 07/20/2012 LOW [facility] CHEMISTRY Potassium Lvl 3.7 meq/L 3.5 - 5.1 07/20/2012 Normal [facility] CHEMISTRY Chloride Lvl 108 meq/L 95 - 109 07/20/2012 Normal [facility] CHEMISTRY Glucose Lvl 121 mg/dL 70 - 99 07/20/2012 [place] 5Interpretive Data: Adult reference range values reflect the clinical guidelines of the [place] [employer]. [facility] CHEMISTRY Creatinine Lvl 0.9 mg/dL 0.5 - 1.4 07/20/2012 Normal [facility] CHEMISTRY BUN 10 mg/dL 7 - 22 07/20/2012 Normal [facility] CHEMISTRY Sodium Lvl 144 meq/L 135 - 145 07/20/2012 Normal [facility] HEMATOLOGY Segs 82.5 % 45.0 - 75.0 07/20/2012 [facility] HEMATOLOGY Basophils 0.1 % 0.0 - 1.0 07/20/2012 Normal [facility] HEMATOLOGY Eosinophils 0.3 % 0.0 - 4.0 07/20/2012 [facility] HEMATOLOGY Monocytes 7.6 % 2.0 - 12.0 07/20/2012 [facility] HEMATOLOGY Lymphocytes 9.5 % 20.0 - 40.0 07/20/2012 [facility] HEMATOLOGY Monocytes # 0.8 K/CMM 0.0 - 0.8 07/20/2012 [facility] HEMATOLOGY Lymphocytes # 1.0 K/CMM 1.0 - 5.5 07/20/2012 [facility] HEMATOLOGY Segs-Bands # 8.6 K/CMM 1.5 - 8.1 07/20/2012 [facility] HEMATOLOGY Basophils # 0.0 K/CMM 0.0 - 0.2 07/20/2012 [facility] HEMATOLOGY Eosinophils # 0.0 K/CMM 0.0 - 0.5 07/20/2012 [facility] HEMATOLOGY MPV 8.7 fL 7.4 - 10.4 07/20/2012 [facility] HEMATOLOGY Platelet 203 K/CMM 133 - 450 07/20/2012 [facility] HEMATOLOGY RDW 15.6 % 11.5 - 14.5 07/20/2012 [facility] HEMATOLOGY MCHC 33.2 g/dL 32.0 - 36.0 07/20/2012 Normal [facility] HEMATOLOGY WBC 10.4 K/CMM 3.7 - 10.4 07/20/2012 Normal [facility] HEMATOLOGY RBC 4.31 M/CMM 4.70 - 6.10 07/20/2012 LOW [facility] HEMATOLOGY MCH 29.9 pg 27.0 - 31.0 07/20/2012 Normal [facility] HEMATOLOGY MCV 90.1 fL 80.0 - 94.0 07/20/2012 Normal [facility] HEMATOLOGY Hct 38.8 % 42.0 - 54.0 07/20/2012 LOW [facility] HEMATOLOGY Hgb 12.9 g/dL 14.0 - 18.0 07/20/2012 LOW [facility] BEDSIDE GLUCOSE TESTING Gluc POC Lifscn 113 mg/dL 70 - 99 07/20/2012 [place] 2Interpretive Data: Upper Reportable Limit: 200 mg/dL. [facility] BEDSIDE GLUCOSE TESTING Gluc POC Lifscn 113 mg/dL 70 - 99 07/20/2012 [place] 3Interpretive Data: Upper Reportable Limit: 200 mg/dL. [facility] CHEMISTRY Magnesium Lvl 2.0 mg/dL 1.8 - 2.4 07/19/2012 Normal [facility] CHEMISTRY Phosphorus 2.3 mg/dL 2.5 - 4.5 07/19/2012 LOW [facility] CHEMISTRY Calcium Lvl 8.2 mg/dL 8.5 - 10.5 07/19/2012 LOW [facility] CHEMISTRY Chloride Lvl 106 meq/L 95 - 109 07/19/2012 Normal [facility] CHEMISTRY CO2 26 meq/L 24 - 32 07/19/2012 Normal [facility] CHEMISTRY Glucose Lvl 115 mg/dL 70 - 99 07/19/2012 [place] 6Interpretive Data: Adult reference range values reflect the clinical guidelines of the [place] [employer]. [facility] CHEMISTRY BUN 9 mg/dL 7 - 22 07/19/2012 Normal [facility] CHEMISTRY Sodium Lvl 142 meq/L 135 - 145 07/19/2012 Normal [facility] CHEMISTRY Creatinine Lvl 0.9 mg/dL 0.5 - 1.4 07/19/2012 Normal [facility] CHEMISTRY Potassium Lvl 3.6 meq/L 3.5 - 5.1 07/19/2012 [facility] CHEMISTRY AGAP 13.6 meq/L 10.0 - 20.0 07/19/2012 [facility] HEMATOLOGY Basophils # 0.0 K/CMM 0.0 - 0.2 07/19/2012 [facility] HEMATOLOGY Lymphocytes 9.3 % 20.0 - 40.0 07/19/2012 [facility] HEMATOLOGY Monocytes 7.1 % 2.0 - 12.0 07/19/2012 [facility] HEMATOLOGY Eosinophils 0.1 % 0.0 - 4.0 07/19/2012 [facility] HEMATOLOGY Lymphocytes # 1.0 K/CMM 1.0 - 5.5 07/19/2012 [facility] HEMATOLOGY Monocytes # 0.8 K/CMM 0.0 - 0.8 07/19/2012 [facility] HEMATOLOGY Eosinophils # 0.0 K/CMM 0.0 - 0.5 07/19/2012 [facility] HEMATOLOGY Segs-Bands # 8.8 K/CMM 1.5 - 8.1 07/19/2012 [facility] HEMATOLOGY Basophils 0.1 % 0.0 - 1.0 07/19/2012 [facility] HEMATOLOGY Segs 83.4 % 45.0 - 75.0 07/19/2012 [facility] HEMATOLOGY WBC 10.5 K/CMM 3.7 - 10.4 07/19/2012 [facility] HEMATOLOGY RBC 4.25 M/CMM 4.70 - 6.10 07/19/2012 [facility] HEMATOLOGY RDW 15.1 % 11.5 - 14.5 07/19/2012 [facility] HEMATOLOGY MCHC 33.7 g/dL 32.0 - 36.0 07/19/2012 [facility] HEMATOLOGY MCV 89.6 fL 80.0 - 94.0 07/19/2012 [facility] HEMATOLOGY Hct 38.1 % 42.0 - 54.0 07/19/2012 [facility] HEMATOLOGY MCH 30.2 pg 27.0 - 31.0 07/19/2012 [facility] HEMATOLOGY Hgb 12.8 g/dL 14.0 - 18.0 07/19/2012 [facility] HEMATOLOGY MPV 8.9 fL 7.4 - 10.4 07/19/2012 Normal [facility] HEMATOLOGY Platelet 194 K/CMM 133 - 450 07/19/2012 Normal [facility] URINALYSIS UA RBC 45 /HPF 0 - 2 07/19/2012 NA [facility] URINALYSIS UA WBC 2 /HPF 0 - 5 07/19/2012 NA [facility] URINALYSIS UA Urobilinogen <=1.0 mg/dL
*NA*
(07/19/2012 14:44:00) <sup> </sup> 0.1 - 1.0 07/19/2012 NA [facility] URINALYSIS UA Mucus Few /LPF *NA* (07/19/2012 14:44:00) None Seen 07/19/[address] [facility] URINALYSIS UA Sq Epi Occasional /LPF *NA* (07/19/2012 14:44:00) Few 07/19/[address] [facility] URINALYSIS UA Bacteria Occasional /HPF *NA* (07/19/2012 14:44:00) None Seen 07/19/[address] [facility] URINALYSIS UA Leuk Est Negative (07/19/2012 14:44:00) Negative 07/19/2012 Normal [facility] URINALYSIS UA Nitrite Negative (07/19/2012 14:44:00) Negative 07/19/2012 Normal [facility] URINALYSIS UA Blood Moderate *ABN* (07/19/2012 14:44:00) Negative 07/19/2012 ABN [facility] URINALYSIS UA Bili Negative *NA* (07/19/2012 14:44:00) Negative 07/19/[address] [facility] URINALYSIS UA Ketones Negative mg/dL *NA* (07/19/2012 14:44:00) Negative 07/19/[address] [facility] URINALYSIS UA pH 5.5 5.0 - 8.0 07/19/2012 Normal [facility] URINALYSIS UA Glucose Negative mg/dL *NA* (07/19/2012 14:44:00) Negative 07/19/[address] [facility] URINALYSIS UA Spec Grav 1.029 <=1.030 07/19/2012 Normal [facility] URINALYSIS UA Protein 20 mg/dL *ABN* (07/19/2012 14:44:00) Negative 07/19/2012 ABN [facility] URINALYSIS UA Turbidity Clear (07/19/2012 14:44:00) Clear 07/19/2012 Normal [facility] URINALYSIS UA Color Yellow *NA* (07/19/2012 14:44:00) Yellow 07/19/2012 NA [facility] BEDSIDE GLUCOSE TESTING Comment1 Notify RN/ 07/19/2012 NA [facility] CHEMISTRY BE [place] 0 mMol/L -2-2 - 2 07/19/2012 Normal [facility] CHEMISTRY Temp [place] 37.0 Snow 07/19/2012 NA [facility] CHEMISTRY O2 Sat [place] 58.0 % 40.0 - 70.0 07/19/2012 Normal [facility] CHEMISTRY HCO3 [place] 26.4 mMol/L 22.0 - 26.0 07/19/2012 HI [facility] CHEMISTRY pCO2 [place] 50 mm[Hg] 38 - 52 07/19/2012 Normal [facility] CHEMISTRY pH [place] 7.33 7.28 - 7.42 07/19/2012 Normal [facility] CHEMISTRY pO2 [place] 33 mm[Hg] 20 - 49 07/19/2012 Normal [facility] HEMATOLOGY Estimated % Lysis 1.4 % 0.0 - 7.5 07/19/2012 Normal [facility] HEMATOLOGY G-value 9.7 K d/sc 5.0 - 11.6 07/19/2012 Normal [facility] HEMATOLOGY Max Amp 66 mm 52 - 71 07/19/2012 Normal [facility] HEMATOLOGY K-time 1.2 min 0.6 - 2.3 07/19/2012 Normal [facility] HEMATOLOGY Angle 76 degrees 64 - 80 07/19/2012 Normal [facility] HEMATOLOGY R-time 0.5 min 0.4 - 0.7 07/19/2012 Normal [facility] HEMATOLOGY [place] 0.4 min 07/19/2012 NA [facility] HEMATOLOGY Rapid TEG Sample Type Citrated Whole Blood 07/19/[address] [facility] HEMATOLOGY ACT (TEG) 97 s 86 - 118 07/19/2012 Normal [facility] IMMUNOLOGY CDC-HIV 1/2 Ab Negative *NA* (07/19/2012 00:51:00) Negative 07/19/[address] [facility] CHEMISTRY U Phencyc Scr Negative *NA* (07/19/2012 00:25:00) Negative 07/19/2012 NA [facility] U Opiate Scr Positive *ABN* (07/19/2012 00:25:00) Negative 07/19/2012 ABN [facility] UDS Note See Note 2 (07/19/2012 00:25:00) 07/19/2012 Normal 2Interpretive Data: Drugs reported as positive have [...] Methadone 300 ng/mL Urine alcohol 20 mg/dL [facility] Cannab Scr Negative *NA* (07/19/2012 00:25:00) Negative 07/19/2012 NA [facility] Cocaine Scr Negative *NA* (07/19/2012 00:25:00) Negative 07/19/2012 NA [facility] Lurdes Scr Negative *NA* (07/19/2012 00:25:00) Negative 07/19/2012 NA [facility] U Amph Scr Negative *NA* (07/19/2012 00:25:00) Negative 07/19/2012 NA [facility] U Benzodia Scr Negative *NA* (07/19/2012 00:25:00) Negative 07/19/2012 NA [facility] URINALYSIS UA Urobilinogen <=1.0 mg/dL
*NA*
(07/19/2012 00:25:00) <sup> </sup> 0.1 - 1.0 07/19/2012 NA [facility] URINALYSIS UA Color Yellow *NA* (07/19/2012 00:25:00) Yellow 07/19/2012 [facility] URINALYSIS UA Turbidity Clear (07/19/2012 00:25:00) Clear 07/19/2012 [facility] URINALYSIS UA Spec Grav 1.020 <=1.030 07/19/2012 [facility] URINALYSIS UA pH 5.0 5.0 - 8.0 07/19/2012 [facility] Glucose Negative mg/dL *NA* (07/19/2012 00:25:00) Negative 07/19/2012 [facility] UA Ketones Negative mg/dL *NA* (07/19/2012 00:25:00) Negative 07/19/2012 [facility] URINALYSIS UA Protein Negative mg/dL (07/19/2012 00:25:00) Negative 07/19/2012 [facility]A Blood Moderate *ABN* (07/19/2012 00:25:00) Negative 07/19/2012 [facility] Bili Negative *NA* (07/19/2012 00:25:00) Negative 07/19/2012 [facility] Nitrite Negative (07/19/2012 00:25:00) Negative 07/19/2012 [facility] Leuk Est Negative (07/19/2012 00:25:00) Negative 07/19/2012 [facility] Sq Epi Occasional /LPF *NA* (07/19/2012 00:25:00) Few 07/19/2012 [facility] URINALYSIS UA Mucus Few /LPF *NA* (07/19/2012 00:25:00) None Seen 07/19/2012 [facility] URINALYSIS UA Bacteria Occasional /HPF *NA* (07/19/2012 00:25:00) None Seen 07/19/2012 [facility] URINALYSIS UA RBC 7 /HPF 0 - 2 07/19/2012 [facility] UA Hyal Cast 11 /LPF 0 - 2 07/19/2012 [facility]IN[facility] UA WBC 2 /HPF 0 - 5 07/19/2012 Normal [facility] BLOOD BANK RESULTS ABO/Rh A POS 07/19/2012 Unknown [facility] BLOOD BANK RESULTS Antibody Scrn Negative (07/18/2012 21:59:00) 07/19/2012 [facility] CHEMISTRY Ethanol Lvl 110 mg/dL 07/19/2012 NA 4Interpretive Data: Negative Range: <3 mg/dL Toxic Range: >250 mg/dL [facility] CHEMISTRY Etoh (%) 0.110 % 07/19/2012 NA 3Interpretive Data: Negative Range: <0.003% Toxic Range: >0.25% [facility] CHEMISTRY AST 43 unit/L 0 - 37 07/19/2012 [facility] CHEMI[facility]Y Calcium Lvl 8.1 mg/dL 8.5 - 10.5 07/19/2012 [facility] CO2 26 meq/L 24 - 32 07/19/2012 [facility] BUN 12 mg/dL 7 - 22 07/19/2012 [facility] Creatinine Lvl 1.2 mg/dL 0.5 - 1.4 07/19/2012 Normal [facility] Potassium Lvl 3.1 meq/L 3.5 - 5.1 07/19/2012 [facility] Sodium Lvl 141 meq/L 135 - 145 07/19/2012 Normal [facility] Glucose Lvl 121 mg/dL 70 - 99 07/19/2012 [place] 1Interpretive Data: Adult reference range values reflect the clinical guidelines of the [place] [employer]. [facility] CHEMISTRY Bili Total 0.3 mg/dL 0.2 - 1.3 07/19/2012 Normal [facility] Alk Phos 47 unit/L 39 - 136 07/19/2012 Normal [facility] CHE[facility] Albumin Lvl 3.5 g/dL 3.5 - 5.0 07/19/2012 Normal [facility] ALT 44 unit/L 0 - 65 07/19/2012 Normal [facility] Total Protein 6.7 g/dL 6.4 - 8.4 07/19/2012 Normal [facility] Chloride Lvl 104 meq/L 95 - 109 07/19/2012 [facility] Globulin 3.2 g/dL 2.0 - 4.0 07/19/2012 [facility] A/G Ratio 1.1 0.7 - 1.6 07/19/2012 Normal [facility] CHEMISTRY AGAP 14.1 meq/L 10.0 - 20.0 07/19/2012 Normal [facility] CHEMISTRY B/C Ratio 10 6 - 25 07/19/2012 Normal [facility] CHEMISTRY Amylase Lvl 34 unit/L 25 - 115 07/19/2012 Normal [facility] HEMATOLOGY Monocytes # 0.9 K/CMM 0.0 - 0.8 07/19/2012 [place] [facility] HEMATOLOGY Lymphocytes # 2.6 K/CMM 1.0 - 5.5 07/19/2012 Normal [facility] HEMATOLOGY Basophils # 0.0 K/CMM 0.0 - 0.2 07/19/2012 Normal [facility] HEMATOLOGY Eosinophils # 0.2 K/CMM 0.0 - 0.5 07/19/2012 Normal [facility] HEMATOLOGY Lymphocytes 28.8 % 20.0 - 40.0 07/19/2012 Normal [facility] HEMATOLOGY Eosinophils 1.7 % 0.0 - 4.0 07/19/2012 Normal [facility] HEMATOLOGY Monocytes 9.4 % 2.0 - 12.0 07/19/2012 Normal [facility] HEMATOLOGY Segs-Bands # 5.5 K/CMM 1.5 - 8.1 07/19/2012 Normal [facility] HEMATOLOGY Basophils 0.3 % 0.0 - 1.0 07/19/2012 Normal [facility] HEMATOLOGY Segs 59.8 % 45.0 - 75.0 07/19/2012 Normal [facility] HEMATOLOGY PT 12.4 s 12.0 - 14.7 07/19/2012 Normal [facility] HEMATOLOGY PTT 26.8 s 22.9 - 35.8 07/19/2012 Normal 6Interpretive Data: Heparin Therapeutic Range: 57 - 92 Seconds [facility] HEMATOLOGY INR 0.90 0.85 - 1.17 07/19/2012 Normal 5Interpretive Data: RECOMMENDED RANGES FOR PROTIME INR: 2.0-3.0 for most medical and surgical thromboembolic states. 2.5-3.5 for artificial heart valves and recurrent embolism. INR SHOULD BE USED ONLY FOR PATIENTS ON STABLE ANTICOAGULANT THERAPY. [facility] HEMATOLOGY MCHC 34.1 g/dL 32.0 - 36.0 07/19/2012 Normal [facility] HEMATOLOGY RDW 15.2 % 11.5 - 14.5 07/19/2012 [place] [facility] HEMATOLOGY Platelet 282 K/CMM 133 - 450 07/19/2012 Normal [facility] HEMATOLOGY MPV 8.1 fL 7.4 - 10.4 07/19/2012 Normal [facility] HEMATOLOGY MCV 88.8 fL 80.0 - 94.0 07/19/2012 Normal [facility] HEMATOLOGY MCH 30.3 pg 27.0 - 31.0 07/19/2012 Normal [facility] HEMATOLOGY WBC 9.2 K/CMM 3.7 - 10.4 07/19/2012 Normal [facility] HEMATOLOGY RBC 4.35 M/CMM 4.70 - 6.10 07/19/2012 LOW [facility] HEMATOLOGY Hgb 13.2 g/dL 14.0 - 18.0 07/19/2012 LOW [facility] HEMATOLOGY Hct 38.7 % 42.0 - 54.0 07/19/2012 LOW [facility] Vital Signs Vital Sign Value Date Comments Source Temperature Oral (F) 98.4 F 07/24/2012 [facility] Systolic (mm Hg) 157 07/24/2012 [facility] Diastolic (mm Hg) 84 07/24/2012 [facility] Heart Rate 62 07/24/2012 [facility] Respitory Rate 20 07/24/2012 [facility] Diastolic (mm Hg) 67 07/24/2012 [facility] Respitory Rate 20 07/24/2012 [facility] Heart Rate 91 07/24/2012 [facility] Systolic (mm Hg) 134 07/24/2012 [facility] Temperature Oral (F) 98.2 F 07/24/2012 [facility] Temperature Oral (F) 98.6 F 07/24/2012 [facility] Heart Rate 101 07/24/2012 [facility] Systolic (mm Hg) 137 07/24/2012 [facility] Respitory Rate 20 07/24/2012 [facility] Diastolic (mm Hg) 82 07/24/2012 [facility] Height 180.34 cm 07/19/2012 [facility] Weight 172.727 07/19/2012 [facility] Weight 188.636 07/19/2012 [facility] Height 180.34 cm 07/19/2012 [facility] Weight 193.182 07/19/2012 [facility] Height 180.34 cm 07/19/2012 [facility] Encounters Location Location Details Encounter Type Encounter Number Reason For Visit Attending Provider ADM Date DC Date Status Source [facility] Inpatient [id number] MULTI FACIAL FX/THORACIC SPINE FX LATESHA HOLLY 07/19/2012 07/24/2012 Active [facility] Procedures Procedure Code Date Perfomer Comments Source
[2018-09-16] MEDS ORDERED: SODIUM CHLORIDE 0.9% 1000ML 1,000 ML IV STA (22:11)
[2018-09-16] MEDS ORDERED: IBUPROFEN 200 MG TAB ONE (22:14)
[2018-09-16] MEDS ORDERED: IBUPROFEN 600 MG TAB ONE (22:14)
[2018-09-16] MEDS ORDERED: IBUPROFEN 200 MG TAB PO STA (22:28)
[2018-09-16] MEDS ORDERED: IBUPROFEN 600 MG TAB PO STA (22:28)
[2018-09-16 22:37] LABS: BASOPHILS # (AUTO) 0.1 (0.0-0.1); BASOPHILS % 0.4 % (0.0-1.0); EOSINOPHILS % 0.3 % (0.0-6.0); HEMATOCRIT 41.1 % (38.2-49.6); HEMOGLOBIN 13.6 g/dL (14.0-18.0); LYMPHOCYTES # (AUTO) 1.2 (1.0-3.2); LYMPHOCYTES % 8.6 % (18.0-39.1); MEAN CORPUSCULAR HEMOGLOBIN 29.6 pg (28-32); MEAN CORPUSCULAR HGB CONC 33.1 g/dL (31-35); MEAN CORPUSCULAR VOLUME 89.5 fL (81-99); MONOCYTES # (AUTO) 1.1 (0.2-0.8); MONOCYTES % 7.6 % (4.4-11.3); NEUTROPHILS # (AUTO) 11.6 (2.1-6.9); PLATELET COUNT 445 x10e3/uL (140-360); RED BLOOD COUNT 4.59 x10e6/uL (4.3-5.7); RED CELL DISTRIBUTION WIDTH 14.2 % (11.7-14.4)
[2018-09-16 22:55] LABS: ALBUMIN 3.5 g/dL (3.5-5.0); ALBUMIN/GLOBULIN RATIO 0.8 (0.8-2.0); ANION GAP 15.7 mmol/L (8-16); CALCIUM 9.8 mg/dL (8.4-10.2); CREATININE, SERUM 1.49 mg/dL (0.72-1.25); POTASSIUM 3.7 mmol/L (3.5-5.1)
[2018-09-17] MEDS ORDERED: VANCOMYCIN 1GM/NS 250 ML 250 ML IV STA (00:49)
[2018-09-17] MEDS ORDERED: PIPER-TAZ 3.375 GM 50 ML IV STA (00:49)
[2018-09-17] MEDS ORDERED: KETOROLAC TROMETHAMINE 30 MG/ML VIAL IV STA (01:15)
[2018-09-17] MEDS ORDERED: MORPHINE SULFATE 2 MG/ML SYR IV STA (01:16)
[2018-09-17] MEDS ORDERED: ONDANSETRON HCL INJ 2 MG/ML VIAL IV STA (01:16)
[2018-09-17] MEDS ORDERED: ONDANSETRON HCL INJ 2 MG/ML VIAL IV PRN (01:45)
[2018-09-17] MEDS ORDERED: MORPHINE SULFATE 2 MG/ML SYR IV PRN (02:00)
--- NOTE | 2018-09-17 04:07 | Diagnostic Imaging Report ---
EXAM: CT SHOULDER RIGHT W DATE: 09/17/2018 1:54 AM INDICATION: ^R/O ABSCESS RIGHT AXILLA ^[id number] ^[id number] COMPARISON: None TECHNIQUE: The right shoulder was scanned using a multidetector helical scanner. Coronal and sagittal reformations were obtained. CT low dose techniques were utilized, as applicable. IV Contrast: 100ml Isovue 300/370 FINDINGS: Evaluation is mildly degraded by body habitus. OTHER: 7 mm nodule is seen in the visualized right upper lobe. SOFT TISSUES: Partially imaged inflammatory changes in the right axillary soft tissues. No drainable fluid collection. BONES: Multilevel cervical and right shoulder degenerative changes are noted. IMPRESSION: 1. Right axillary inflammatory changes without visualized drainable abscess. 2. Right lung nodule (7 mm). Recommend 6-12 month follow-up chest CT. Signed by: Dr Linda Perkins MD on 09/17/2018 4:04 AM
[2018-09-17] MEDS ORDERED: DIPHENHYDRAMINE HCL INJ 50 MG/ML VIAL IV ONE ×2 (04:15→04:30)
[2018-09-17] MEDS ORDERED: FAMOTIDINE 20 MG/2 ML VIAL IV ONE (04:15)
[2018-09-17] MEDS ORDERED: METHYLPREDNISOLONE SOD SUCC 125 MG/2ML VIAL ONE (04:15)
[2018-09-17] MEDS ORDERED: FAMOTIDINE 20 MG/2 ML VIAL IV STA (04:19)
[2018-09-17] MEDS ORDERED: METHYLPREDNISOLONE SOD SUCC 125 MG/2ML VIAL IV ONE (04:30)
[2018-09-17] MEDS ORDERED: LISINOPRIL10 MG PO (04:44)
[2018-09-17] MEDS ORDERED: VENLAFAXINE HCL75 MG PO (04:44)
[2018-09-17] MEDS ORDERED: METOPROLOL TART25 MG PO (04:44)
[2018-09-17] MEDS ORDERED: IOPAMIDOL 370 MG/ML 200 ML INFUS..BTL INJ ONE (05:04)
[2018-09-17] MEDS ORDERED: SODIUM CHLORIDE 0.9% 50ML 50 ML ONE (05:04)
[2018-09-17] MEDS: PIPER-TAZ 3.375 GM 50 ML IV SCH ×3 (06:26→18:36)
--- NOTE | 2018-09-17 06:50 | History and Physical ---
CHIEF COMPLAINT 1. Cellulitis of the right axilla. 2. Sepsis secondary to cellulitis. HISTORY OF PRESENT ILLNESS: Patient is a 48-year-old gentleman who presented with a couple day history of right large indurated area associated with fever and hypotensive initially, but doing better with the blood pressure now. Initial white count of 14,000. He is being admitted for sepsis secondary to cellulitis. Remarkably, CT scan does not show any fluctuance or abscess. It is mostly superficial changes. PAST MEDICAL HISTORY: Significant for diabetes. MEDICATIONS: See MAR. ALLERGIES: NONE. SOCIAL HISTORY: Nonsmoker and nondrinker. FAMILY HISTORY: Noncontributory. PHYSICAL EXAMINATION VITALS: 100.3, blood pressure currently is 103/68, pulse 78, sats 93%. GENERAL: He is in no apparent distress lying in bed. Morbidly obese. NECK: Large. LUNGS: Clear to auscultation bilaterally. CARDIOVASCULAR: Regular rate and rhythm. ABDOMEN: Obese and protuberant. Good bowel sounds. Nontender. EXTREMITIES: Shows a large area of induration under the right axilla with no open areas. It is warm and tender. NEUROLOGICAL: Nonfocal. ASSESSMENT 1. Cellulitis of the right axilla: Continue with antibiotics. Will consult infectious disease. 2. Sepsis secondary to cellulitis: Continue with intravenous antibiotics. Blood pressure is doing much better. Will start diuresis. Continue to monitor. 3. Chronic kidney disease, stage 3: Continue to monitor. 4. Leukocytosis: Continue to monitor. Please see hospital chart for details. Job#: [id number] NOMI
[2018-09-17] MEDS ORDERED: METHYLPREDNISOLONE SOD SUCC 125 MG/2ML VIAL IV SCH ×2 (09:00→14:00)
[2018-09-17] MEDS ORDERED: VANCOMYCIN 1GM/NS 250 ML 250 ML IV SCH (12:00)
[2018-09-17] MEDS: VANCOMYCIN 1GM/NS 250 ML 250 ML IV SCH (14:10)
--- NOTE | 2018-09-17 15:44 | Consultation ---
DATE OF CONSULTATION: September 17, 2018 REASON FOR CONSULTATION: Cellulitis on the right axilla. This patient who is a 48-year-old white male, morbidly obese patient, who had redness and swelling of his right axilla since Thursday. Started with a small lesion, but got progressively worse. The patient came to the emergency room because of pain. He had fever earlier. PAST MEDICAL HISTORY: Morbidly obese. PAST SURGICAL HISTORY: Denies. ALLERGIES: NKA. SOCIAL HISTORY: There is no smoking, drug abuse or alcohol abuse. REVIEW OF SYSTEMS HEENT: Negative. PULMONARY: Negative. CARDIAC: Negative. LABS: White count is 14.14, hemoglobin 13.6. Sodium 135, potassium 3.7, creatinine 1.49. Lactic acid 29. Liver enzymes are within normal limits. PHYSICAL EXAMINATION GENERAL: He is currently alert, oriented and does not seem to be in acute distress. VITALS: Currently afebrile. HEENT: Not icteric. NECK: Supple. CHEST: Clear. It is hard to assess because he is morbidly obese. The axilla seems to be erythematous with tenderness. I cannot really appreciate any abscess. CT scan was done and showed right axillary inflammatory changes without an abscess. IMPRESSION 1. Cellulitis. 2. The patient is morbidly obesity. 3. Chronic kidney disease. Agree with vancomycin. Agree with Zosyn. He is a large patient, so we have to adjust the vancomycin once we get the trough with the 3rd dose. I told him over the next 24 hours to 48 hours we may have to repeat ultrasound by Thursday on the axilla to see if there is an abscess. It is very hard to assess him. We have to go with how he feels clinically. Will follow with you. Job#: [id number] NOMI
[2018-09-17] MEDS: METHYLPREDNISOLONE SOD SUCC 125 MG/2ML VIAL IV SCH ×2 (17:47→20:53)
[2018-09-17 20:00] VITALS: BP 112/73
[2018-09-17 21:31] VITALS: BP 112/73
[2018-09-17 22:46] VITALS: BP 118/73
[2018-09-18] VITALS (8 sets, daily range): BP systolic 104–170; BP diastolic 67–93
[2018-09-18] MEDS ORDERED: SODIUM CHLORIDE 0.9% 250ML 250 ML ONE (00:24)
[2018-09-18] MEDS: PIPER-TAZ 3.375 GM 50 ML IV SCH ×4 (00:35→18:35)
[2018-09-18] MEDS: VANCOMYCIN 1GM/NS 250 ML 250 ML IV SCH ×2 (02:00→13:32)
[2018-09-18 08:34] LABS: BASOPHILS # (AUTO) 0.1 (0.0-0.1); BASOPHILS % 0.6 % (0.0-1.0); HEMATOCRIT 38.6 % (38.2-49.6); HEMOGLOBIN 12.3 g/dL (14.0-18.0); LYMPHOCYTES # (AUTO) 1.1 (1.0-3.2); LYMPHOCYTES % 4.8 % (18.0-39.1); MEAN CORPUSCULAR HEMOGLOBIN 29.4 pg (28-32); MEAN CORPUSCULAR HGB CONC 31.9 g/dL (31-35); MEAN CORPUSCULAR VOLUME 92.1 fL (81-99); MONOCYTES % 4.2 % (4.4-11.3); NEUTROPHILS # (AUTO) 20.8 (2.1-6.9); NEUTROPHILS % 87.5 % (38.7-80.0); PLATELET COUNT 355 x10e3/uL (140-360); RED BLOOD COUNT 4.19 x10e6/uL (4.3-5.7); RED CELL DISTRIBUTION WIDTH 14.7 % (11.7-14.4)
[2018-09-18 08:50] LABS: ANION GAP 16.4 mmol/L (8-16); CALCIUM 9.7 mg/dL (8.4-10.2); CREATININE, SERUM 1.41 mg/dL (0.72-1.25); POTASSIUM 4.4 mmol/L (3.5-5.1)
[2018-09-18] MEDS ORDERED: METOPROLOL TARTRATE 25 MG TAB PO SCH (09:00)
[2018-09-18] MEDS ORDERED: LISINOPRIL 10 MG TAB PO SCH (09:00)
[2018-09-18 09:20] LABS: LYMPHOCYTES % (MANUAL) 8 % (19-48); MONOCYTES % (MANUAL) 6 % (3.4-9.0); NEUTROPHILS % (MANUAL) 77 % (40-74)
[2018-09-18 09:21] LABS: BAND NEUTROPHILS % (MANUAL) 7 %; METAMYELOCYTES % (MANUAL) 1 % (0-0); MYELOCYTES % (MANUAL) 1 % (0-0); PLATELET ESTIMATE ADEQUATE; PLATELET MORPHOLOGY COMMENT NORMAL; RBC MORPHOLOGY COMMENT NORMAL
[2018-09-18] MEDS: VENLAFAXINE HCL 75 MG TAB PO SCH ×2 (09:45→18:35)
[2018-09-18] MEDS: METHYLPREDNISOLONE SOD SUCC 125 MG/2ML VIAL IV SCH ×2 (09:45→20:39)
[2018-09-19] VITALS: BP 127/72
[2018-09-19] MEDS: PIPER-TAZ 3.375 GM 50 ML IV SCH ×5 (00:28→18:00)
[2018-09-19] MEDS: VANCOMYCIN 1GM/NS 250 ML 250 ML IV SCH (03:30)
[2018-09-19 04:00] VITALS: BP 136/61
[2018-09-19] MEDS ORDERED: DEXTROSE 50% SYRINGE 50 ML IV PRN (07:00)
[2018-09-19] MEDS: INSULIN REGULAR, HUMAN 100 UNIT/1 ML 3ML VIAL SQ SCH ×4 (07:30→21:00)
[2018-09-19 08:00] VITALS: BP 135/65
[2018-09-19] MEDS: METHYLPREDNISOLONE SOD SUCC 125 MG/2ML VIAL IV SCH ×2 (09:00→22:50)
[2018-09-19] MEDS: VENLAFAXINE HCL 75 MG TAB PO SCH ×2 (09:00→17:54)
[2018-09-19] MEDS: VANCOMYCIN HCL 1.25 GM in SODIUM CHLORIDE 0.9% 250ML 250 ML IV SCH ×2 (09:40→22:50)
[2018-09-19] MEDS ORDERED: ACETAMINOPHEN 325 MG TAB PO PRN (11:30)
[2018-09-19 12:00] VITALS: BP 135/70
[2018-09-19] MEDS: HYDROCODONE/APAP 5MG-325MG TAB PO PRN ×2 (15:05→15:19)
[2018-09-19 16:00] VITALS: BP 152/77
--- NOTE | 2018-09-19 19:44 | Diagnostic Imaging Report ---
CHEST XRAY LINE PLACEMENT, 09/19/2018 7:17 PM Technique: CHEST XRAY LINE PLACEMENT Comparison: None available. Clinical history: Line placement Findings: See Impression Impression: Severely limited by body habitus and portable technique. Overlying support apparatus. 1. Lines/Tubes: Left PICC line with tip poorly visualized. 2. Enlarged cardiomediastinal silhouette. No gross consolidation or pneumothorax. Signed by: Dr Linda Perkins MD on 09/19/2018 7:41 PM
[2018-09-19 20:00] VITALS: BP 140/75
--- NOTE | 2018-09-19 22:32 | Diagnostic Imaging Report ---
CHEST XRAY LINE PLACEMENT, 09/19/2018 7:53 PM Technique: CHEST XRAY LINE PLACEMENT Comparison: Same day. Clinical history: PICC line placement, multiple views for better visualization Findings: See Impression Impression: Again limited by body habitus and portable technique. 1. Lines/Tubes: Left PICC line tip projects over the expected proximal SVC. 2. Unremarkable cardiomediastinal silhouette. No consolidation or edema. No pneumothorax. Signed by: Dr Linda Perkins MD on 09/19/2018 10:29 PM
[2018-09-20] VITALS (9 sets, daily range): BP systolic 126–143; BP diastolic 63–84
[2018-09-20] MEDS: PIPER-TAZ 3.375 GM 50 ML IV SCH ×3 (00:35→12:42)
[2018-09-20 05:26] LABS: HEMATOCRIT 37.5 % (38.2-49.6); LYMPHOCYTES # (AUTO) 1.6 (1.0-3.2); LYMPHOCYTES % 8.1 % (18.0-39.1); MEAN CORPUSCULAR HEMOGLOBIN 28.8 pg (28-32); MEAN CORPUSCULAR VOLUME 90.1 fL (81-99); MONOCYTES % 4.9 % (4.4-11.3); NEUTROPHILS # (AUTO) 15.2 (2.1-6.9); NEUTROPHILS % 75.7 % (38.7-80.0); PLATELET COUNT 449 x10e3/uL (140-360); RED BLOOD COUNT 4.16 x10e6/uL (4.3-5.7); RED CELL DISTRIBUTION WIDTH 14.6 % (11.7-14.4)
[2018-09-20 06:31] LABS: BAND NEUTROPHILS % (MANUAL) 3 %; HYPERSEGMENTED NEUTROPHILS FEW; LYMPHOCYTES % (MANUAL) 8 % (19-48); MONOCYTES % (MANUAL) 4 % (3.4-9.0); NEUTROPHILS % (MANUAL) 85 % (40-74); TOXIC GRANULATION SLIGHT
[2018-09-20] MEDS: VENLAFAXINE HCL 75 MG TAB PO SCH ×2 (08:50→17:17)
[2018-09-20] MEDS: METHYLPREDNISOLONE SOD SUCC 125 MG/2ML VIAL IV SCH (08:50)
[2018-09-20] MEDS: INSULIN REGULAR, HUMAN 100 UNIT/1 ML 3ML VIAL SQ SCH ×2 (08:54→12:44)
[2018-09-20] MEDS: VANCOMYCIN HCL 1.25 GM in SODIUM CHLORIDE 0.9% 250ML 250 ML IV SCH (10:25)
--- NOTE | 2018-11-21 13:23 | Discharge Summary ---
DISCHARGE DIAGNOSIS: Cellulitis of the right axilla. HISTORY OF PRESENT ILLNESS AND HOSPITAL COURSE: See hospital chart for full details since this discharge summary is not all encompassing. This patient is a gentleman admitted with right axillary cellulitis who was brought in and placed on IV antibiotics with Zosyn and vancomycin, and was seen by also Dr. Beltre. At the time of discharge, he had a PICC line placed. He is going to have outpatient antibiotic therapy with vancomycin and Zosyn and follow up with Dr. Beltre. Please see hospital chart for full details. RUPA SANCHEZ MD Job#: [id number] SKY[facility]
== END 2018-09-20 18:07 | disposition home or self-care (01) | DRG 872 ==
LOC: ER 21:07 → ERHOLD 09-17 01:36 → MED/SURG2 09-17 18:01
PROVIDERS: ADMIT Internal Medicine; ATTEND Internal Medicine
PROC: 02HV33Z Insertion of Infusion Device into Superior Vena Cava, Percutaneous Approach (ICD-10-PCS; principal; 2018-09-19)
DX: A41.9 Sepsis, unspecified organism (principal); L03.111 Cellulitis of right axilla; Z68.44 Body mass index [BMI] 60.0-69.9, adult; Z68.42 Body mass index [BMI] 45.0-49.9, adult; E11.22 Type 2 diabetes mellitus with diabetic chronic kidney disease; N18.3 Chronic kidney disease, stage 3 (moderate); E66.01 Morbid (severe) obesity due to excess calories; F32.9 Major depressive disorder, single episode, unspecified; R91.8 Other nonspecific abnormal finding of lung field; T38.0X5A Adverse effect of glucocorticoids and synthetic analogues, initial encounter; E11.65 Type 2 diabetes mellitus with hyperglycemia
CPT/HCPCS: 36415; 36569; 71045; 80048; 80053; 80202; 82948; 83036; 83605; 85025; 87040; 99284; J1200; J2270; J2405; J2543; J2930; J3370; J7030; J7050; Q9967